=== PATIENT | male | born 1930 | race Caucasian/White ===

== ENCOUNTER 2018-04-03 14:45 | Outpatient (RCR) | payer MEDICARE, BC ==
[~2018-04-03 14:45] MED LIST: ALPHA LIPOIC A200 M2 PO; ALPHA LIPOIC A200 MG PO; ANTIVERT 25MG25 MG PO; B COMPLEX #11 TA1 PO; BACTRIM DS 8001 TAB PO; CARDIZEM CD 12120 MG PO; CARTIA XT240 MG PO; CEFTIN500 MG PO; CHELATED MAGNE200 MG PO; COENZYME Q-10100 M1 PO; COLACE 100100 MG/CAP PO; COUMADIN 22.5 MG/TAB PO; COUMADIN 5MG5 MG/TAB PO; COUMADIN4 MG PO; DIGOXIN0.25 MG PO; EPA FISH OIL1000 MG PO; HCTZ 25MG TAB25 MG PO; KLOR-CON 1010 MEQ PO; LANOXIN 0.25M0.25 MG PO; LEVAQUIN 750MG750 M1 PO; LOVENOX 100100 MG/ML SQ; MULTAQ400 MG PO; MULTIPLE VITAMI1 TAB PO; NATURAL E400 IU PO; NATURAL MAGNES200 MG PO; OMEGA-3 1000 MG1 CAP PO; OMNICEF 300MG300 MG PO; PRAVACHOL 40MG40 MG PO; PRINIVIL10 MG PO; PROSCAR 5MG5 MG PO; THE MEDICINE S200 M2 PO; TOPROL XL 25MG25 MG PO; VITAMIN C500 MG PO; VITAMIN D 1001000 IU PO; VITAMIN D1000 IU PO; WARFARIN SODIUM5 MG PO; ZOCOR 40MG40 MG PO; ZOCOR40 MG PO
== END 2018-04-04 16:04 | disposition home or self-care (01) ==
LOC: MKS.ESL.PT 14:45
DX: R29.898 Other symptoms and signs involving the musculoskeletal system (principal); R53.81 Other malaise; Z91.81 History of falling
CPT/HCPCS: G8990-GP; G8991-GP; G8992-GP

== ENCOUNTER → 2018-04-15 | Outpatient (CLI) | payer MEDICARE, BC | LOC: COL.RAD 11:07 | DX: N20.0 Calculus of kidney (principal); M47.897 Other spondylosis, lumbosacral region; K85.90 Acute pancreatitis without necrosis or infection, unspecified; N28.1 Cyst of kidney, acquired; I25.10 Atherosclerotic heart disease of native coronary artery without angina pectoris; I72.3 Aneurysm of iliac artery ==

== ENCOUNTER 2018-07-30 03:18 | Emergency (ER) | payer MEDICARE, BC ==
[~2018-07-30] VITALS: Ht 185.4 cm; Wt 97.7 kg
[~2018-07-30 03:18] MED LIST changes: -COUMADIN 22.5 MG/TAB PO
[2018-07-30 03:25] VITALS: BP 151/82; PULSE 89
[2018-07-30] MEDS ORDERED: ALDACTONE 25MG25 M1 PO (03:37)
== END 2018-07-30 04:48 | disposition home or self-care (01) ==
LOC: COL.ER 03:18
DX: K59.00 Constipation, unspecified (principal); I10 Essential (primary) hypertension; I48.91 Unspecified atrial fibrillation; Z98.890 Other specified postprocedural states; Z79.01 Long term (current) use of anticoagulants

== ENCOUNTER 2020-02-08 12:37 | Emergency (ER) | payer MEDICARE, BC ==
[~2020-02-08] VITALS: Ht 182.9 cm; Wt 90.9 kg
[~2020-02-08 12:37] MED LIST changes: +ALDACTONE 25MG25 M1 PO; +CEPHALEXIN500 M1 PO; +CLEOCIN HCL300 MG PO
[2020-02-08 12:57] VITALS: TEMP 97.8
[2020-02-08 13:19] LABS: HEMOGLOBIN 11.8 g/dl (13.5-18.0); MEAN CELL VOLUME 107 fl (80.0-100.0); MEAN CORPUSCULAR HEMOGLOBIN 36 pg (27.0-31.0); MEAN CORPUSCULAR HGB CONC 33 g/dl (33.0-37.0); MEAN PLATELET VOLUME 11.1 fl (7.4-10.4); PLATELET COUNT 207 K/mm3 (130-400); RED BLOOD COUNT 3.32 M/mm3 (4.20-5.60); REDCELL DISTRIBUTION WIDTH-CV 14.6 % (11.5-14.5)
[2020-02-08 13:29] LABS: INR 2.5 (0.8-3.0); PROTHROMBIN TIME 28.7 SECONDS (9.7-12.8)
[2020-02-08 13:33] LABS: ALANINE AMINOTRANSFERASE 14 U/L (4-49); ALBUMIN 4.1 gm/dL (3.5-5.0); ALKALINE PHOSPHATASE 51 U/L (50-136); ANION GAP 6 mmol/L (7-16); AST,SGOT 29 U/L (15-37); BILIRUBIN,TOTAL 0.8 mg/dL (0.0-1.0); BLOOD UREA NITROGEN 22 mg/dL (9-20); CALCIUM 9.4 mg/dL (8.4-10.2); CARBON DIOXIDE 30 mmol/L (22-30); CHLORIDE 98 mmol/L (98-107); CREATININE, serum 1.04 (0.66-1.25); GLUCOSE 93 mg/dL (74-106); HEMATOCRIT 35.5 % (42.0-52.0); LIPASE 140 U/L (23-300); POTASSIUM 4.2 mmol/L (3.4-5.0); SODIUM 134 mmol/L (137-145)
[2020-02-08 13:55] LABS: TROPONIN-I < 0.012 ng/mL (0.000-0.035)
[2020-02-08 14:02] LABS: BAND 8 % (0-10); BASOPHIL 1 % (0-2); EOSINOPHIL 1 % (0-4); LYMPHOCYTE 21 % (20.0-51.0); NEUTROPHILS 57 % (42.0-75.2); PLATELET ESTIMATE NORMAL (NORMAL)
[2020-02-08 15:00] VITALS: BP 156/89; PULSE 69
== END 2020-02-08 15:04 | disposition home or self-care (01) ==
LOC: COL.ER 12:37
PROVIDERS: Emergency Medicine
DX: R53.81 Other malaise (principal); I48.91 Unspecified atrial fibrillation; R42 Dizziness and giddiness; Z95.0 Presence of cardiac pacemaker; Z88.8 Allergy status to other drugs, medicaments and biological substances; Z88.2 Allergy status to sulfonamides; Z79.01 Long term (current) use of anticoagulants
CPT/HCPCS: J7040